=== PATIENT | female | born 1985 | race Caucasian/White ===

== ENCOUNTER 2016-03-27 11:28 | Emergency (ER) | payer SELFPAY ==
[2016-03-27 12:01] LABS: PH,URINE 6.5 (5.0-8.0); SPECIFIC GRAVITY 1.015 (1.001-1.030); URINE BILIRUBIN NEGATIVE (NEGATIVE); URINE BLOOD TRACE (NEGATIVE); URINE GLUCOSE (UA) NEGATIVE (NEGATIVE); URINE LEUKOCYTE ESTERASE TRACE (NEGATIVE); URINE NITRITE NEGATIVE (NEGATIVE); URINE PROTEIN TRACE (NEGATIVE); URINE UROBILINOGEN NORMAL (0-1 mg/dl)
[2016-03-27 12:03] LABS: URINE APPEARANCE CLEAR; URINE COLOR YELLOW
[2016-03-27 12:14] LABS: URINE BACTERIA FEW; URINE MUCUS 2+; URINE RBC 0-2 /hpf
--- NOTE | 2016-03-27 14:02 | US ---
Exam: Limited obstetric ultrasound COMPARISON: None INDICATION: 18 weeks , left flank pain. Findings: Emergent, limited obstetric ultrasound was obtained. Real-time sonographic imaging demonstrated a single live intrauterine in breech presentation with a heart rate of 144 bpm. There is a posterior placenta which appeared low-lying but its exact location with respect the internal os was not seen. No retroplacental fluid collections are identified. Amniotic fluid volume is subjectively normal. anatomic survey survey was not performed. IMPRESSION: Single live intrauterine with a heart rate of 144 bpm. No findings identified to explain abdominal pain. Findings discussed with Dr. Lua 1345 hours 03/27/2016.
--- NOTE | 2016-03-27 14:04 | US ---
Exam: Limited renal ultrasound COMPARISON: CT 01/25/2014 INDICATION: Left flank pain, 18 weeks . Findings: Limited left renal ultrasound was obtained. The left kidney measures 12.9 cm in length. There is normal renal cortical thickness and echogenicity. There is no hydronephrosis. Resistive index is 0.65. IMPRESSION: Normal left kidney. Findings discussed with Dr. Lua 1345 hours 03/27/2016.
== END 2016-03-27 14:05 | disposition home or self-care (01) ==
LOC: ED 11:28
DX: O26.892 Other specified pregnancy related conditions, second trimester (principal); R10.9 Unspecified abdominal pain; Z3A.18 18 weeks gestation of pregnancy